=== PATIENT | male | born 1950 | race Caucasian/White ===

== ENCOUNTER → 2021-03-14 | Outpatient (CLI) | payer MEDICARE ==
--- NOTE | 2021-03-14 10:46 | KCIC ---
EXAM: Bilateral feet, 3 views. HISTORY: Pain. COMPARISON: None. FINDINGS: 3 views of both feet are obtained. There is no acute fracture, dislocation or subluxation. There is minimal enthesopathy at Achilles tendon insertions. IMPRESSION: No acute osseous finding. Electronically signed by: Lin Ware MD (03/14/2021 10:43 AM) [id number]
== END ==
LOC: KCIC 10:18
PROVIDERS: ATTEND Family Medicine
DX: M79.671 Pain in right foot (principal); M79.672 Pain in left foot
CPT/HCPCS: 73630-50

== ENCOUNTER 2021-05-05 10:08 | Observation (INO) | payer MEDICARE ==
[~2021-05-05] VITALS: Ht 175.3 cm; Wt 92.0 kg
[2021-05-05] MEDS ORDERED: IV NORMAL SALINE 1000ML BAG 1,000 ML IV ONE (10:30)
--- NOTE | 2021-05-05 10:35 | PHYS DOC ---
General Adult EDM: Chief Complaint: Palpitations HPI: HPI: Patient is a 70 year old male who presents with 2 days of intermittent palpitations and shortness of breath causing " panting" and just not feeling well. He states he is feeling better today. He is denying chest pain, dizziness, headache, nausea, vomiting, diarrhea, fever, back pain, syncope, lightheadedness, abdominal pain, vision change, numbness tingling, focal weak ness. He states he has no family history of heart disease or cardiac problems. He does still vape occasionally. He has a history of hypertension, anxiety, insomnia, former smoker, bowel resection. Review of Systems: Review of Systems: Constitutional: Denies fever or chills. [] Eyes: Denies change in visual acuity. [] HENT: Denies nasal congestion or sore throat. [] Respiratory: Denies cough or +shortness of breath. [] Cardiovascular: Denies chest pain or edema. + Palpitations [] GI: Denies abdominal pain, nausea, vomiting, bloody stools or diarrhea. [] : Denies dysuria. [] Musculoskeletal: Denies back pain or joint pain. [] Integument: Denies rash. [] Neurologic: Denies headache, focal weakness or sensory changes. [] Endocrine: Denies polyuria or polydipsia. [] Lymphatic: Denies swollen glands. [] Psychiatric: Denies depression or anxiety. [] Heart Score: C/O Chest Pain: No HEART Score for Chest Pain: HEART Score for Chest Pain Response (Comments) Value History Slighlty/Non-Suspicious 0 ECG Nonspecific Repolarizatio 1 Age > 65 2 Risk Factors 1 or 2 Risk Factors 1 Troponin < Normal Limit 0 Total 4 Risk Factors: Risk Factors: DM, Current or recent (<one month) smoker, HTN, HLP, family history of CAD, obesity. Risk Scores: Score 0 - 3: 2.5% MACE over next 6 weeks - Discharge Home Score 4 - 6: 20.3% MACE over next 6 weeks - Admit for Clinical Observation Score 7 - 10: 72.7% MACE over next 6 weeks - Early Invasive Strategies Physical Exam: PE: Constitutional: Well developed, well nourished, no acute distress, non-toxic appearance. [] HENT: Normocephalic, atraumatic, bilateral external ears normal, oropharynx moist, no oral exudates, nose normal. [] Eyes: PERRLA, EOMI, conjunctiva normal, no discharge. [] Neck: Normal range of motion, no tenderness, supple, no stridor. [] Cardiovascular:Heart rate sinus arrhythmia rhythm, no murmur [] Lungs & Thorax: Bilateral upper breath sounds clear lower diminished to auscultation [] Abdomen: Bowel sounds normal, soft, no tenderness, no masses, no pulsatile masses. [] Skin: Warm, dry, no erythema, no rash. [] Back: No tenderness, no CVA tenderness. [] Extremities: No tenderness, no cyanosis, no clubbing, ROM intact, no edema. [] Neurologic: Alert and oriented X 3, normal motor function, normal sensory function, no focal deficits noted. [] Psychologic: Affect normal, judgement normal, mood normal. [] EKG: EK and read by Dr. Wise is irregular sinus rhythm but no STEMI. [address] Wise as a irregular sinus arrhythmia but no STEMI Radiology/Procedures: Radiology/Procedures: [] Impression: [address] [id number] IMAGING REPORT Signed PATIENT: DANNIE DOE ACCOUNT: [id number] : 1950 LOCATION: ER AGE: 70 SEX: M EXAM STATUS: PRE ER ORD. PHYSICIAN: JOSIAH DAVENPORT APRN REASON: chest pain PROCEDURE: PORTABLE CHEST 1V XR CHEST 1V History: Chest pain Comparison: 11/22/2009 Technique: Portable AP radiograph of the chest. Findings: The lungs are adequately and symmetrically inflated. No airspace consolidation, pleural effusion or pneumothorax. The heart size and pulmonary vasculature are w ithin normal limits. Osseous structures and soft tissues are unremarkable. Impression: 1. No acute cardiopulmonary process. Electronically signed by: Gwyn Teresa MD (05/05/2021 10:38 AM) [id number] DICTATED and SIGNED BY: GWYN TERESA MD DATE: 05/05/21 [id number] [id number] IMAGING REPORT Signed PATIENT: DANNIE DOE ACCOUNT: [id number] : 1950 LOCATION: ER AGE: 70 SEX: M EXAM STATUS: REG ER ORD. PHYSICIAN: JOSIAH DAVENPORT APRN REASON: chest pain, papitations, soa PROCEDURE: CT ANGIOGRAPHY CHEST CT arteriogram of the chest. HISTORY: Chest pain, palpitations, short of air CT arteriogram of the chest was done using 100 mL Omnipaque 350 contrast. Sagittal and coronal MIP images were reconstructed. There is no mediastinal adenopathy. There is a trace of pleural effusion on the left. Upper aspect of the liver and spleen are unremarkable. Lungs are free of infiltrates. There are mild emphysematous changes. There are no other infiltrates. This study is negative for a pulmonary embolus. There are mild calcifications in the coronary arteries mainly in the LAD. IMPRESSION: 1. Mild atelectasis without other infiltrates. 2. Negative for a pulmonary embolus. 3. Trace of pleural effusion on the left. PQRS Compliance Statement: One or more of the following individualized dose reduction techniques were utilized for this examination: 1. Automated exposure control 2. Adjustment of the mA and/or kV according to patient size 3. Use of iterative reconstruction technique Electronically signed by: Colt Maloney MD (05/05/2021 11:24 AM) [facility] DICTATED and SIGNED BY: COLT MALONEY MD DATE: 05/05/21 [id number] Course & Med Decision Making: Course & Med Decision Making Pertinent Labs and Imaging studies reviewed. (See chart for details) See HPI. Alert and oriented x4. Ambulatory steady gait. Speaks in full clear sentences. Skin pink warm and dry. No peripheral edema. Lungs are clear in upper lobes and diminished in lower lobes. Patient states he will take Valium to help him sleep and occasionally Adderall to help him have energy to get things done. Patient is positive for benzo, amphetamine (patient states he takes Adderall), marijuana. Patient does drops down to 88-89% on room air. CT of the chest does show pleural effusion on the left and some emphysema changes. Patient's BNP is elevated. Patient is weary of being admitted here due to a bad experience years ago and his father also here. Patient does not have a history of CHF, COPD or emphysema. He does not have a history of any heart problems. His EKG is irregular sinus rhythm. Patient is agreeable to the admitted to the hospital. Patient admitted to Dr. Cook. [] José Disclaimer: José Disclaimer: This electronic medical record was generated, in whole or in part, using a voice recognition dictation system. Departure Departure Impression: Primary Impression: Shortness of breath Additional Impressions: Pleural effusion Palpitations Disposition: ADMITTED INPATIENT Admitting Physician: ROBBIE Condition: STABLE Referrals: VANNESSA PETIT (PCP) JOSIAH DAVENPORT APRN May 05, 2021 10:35
[2021-05-05 10:39] LABS: BASO # 0.1 x10^3/uL (0.0-0.2); BASO % 1 % (0-3); EOS # 0.1 x10^3/uL (0.0-0.7); EOS % 1 % (0-3); HEMATOCRIT 36.3 % (39.0-53.0); HEMOGLOBIN 11.5 g/dL (13.0-17.5); LYMPH # 1.4 x10^3/uL (1.0-4.8); LYMPH % 17 % (24-48); MEAN CORPUSCULAR HEMOGLOBIN 31 pg (25-35); MEAN CORPUSCULAR HGB CONC 32 g/dL (31-37); MEAN CORPUSCULAR VOLUME 98 fL (79-100); MONO # 0.7 x10^3/uL (0.0-1.1); MONO % 8 % (0-9); NEUT % 73 % (31-73); PLATELET COUNT 153 x10^3/uL (140-400); WHITE BLOOD COUNT 8.2 x10^3/uL (4.0-11.0)
--- NOTE | 2021-05-05 10:40 | RAD ---
XR CHEST 1V History: Chest pain Comparison: 11/22/2009 Technique: Portable AP radiograph of the chest. Findings: The lungs are adequately and symmetrically inflated. No airspace consolidation, pleural effusion or p neumothorax. The heart size and pulmonary vasculature are within normal limits. Osseous structures an d soft tissues are unremarkable. Impression: 1. No acute cardiopulmonary process. Electronically signed by: Gwyn Painting MD (05/05/2021 10:38 AM) [id number]
--- NOTE | 2021-05-05 10:41 | EKG ---
[facility] [address] [place] [address] Test Date: 2021-05-05 Test Time: 10:17:01 Pat Name: DANNIE DOE Department: Room: Gender: M Planer Stone: : 1950 Requested By: JOSIAH DAVENPORT Order Number: [id number] Reading MD: Anjum Grayson MD Measurements Intervals [place] Rate: 91 P: 28 [place]: 152 QRS: 125 QRSD: 148 T: -34 QT: 366 QTc: 452 Interpretive Statements SINUS ARRHYTHMIA RIGHT JACOBSON/VERTICAL AXIS IVCD Electronically Signed On 05-09-2021 11:14:31 EMPLOYMENT APPEALS EXAMINER by Anjum Grayson MD
[2021-05-05 10:49] LABS: CALCIUM 8.3 mg/dL (8.5-10.1); CREATININE 0.9 mg/dL (0.7-1.3); GFR 83.7; POTASSIUM 3.6 mmol/L (3.5-5.1); PROTHROMBIN TIME PATIENT 12.3 SEC (11.7-14.0)
[2021-05-05 10:55] LABS: ALBUMIN 3.5 g/dL (3.4-5.0); ALBUMIN/GLOBULIN RATIO 0.9 (1.0-1.7); MAGNESIUM 2.1 mg/dL (1.8-2.4); TOTAL BILIRUBIN 0.8 mg/dL (0.2-1.0); TOTAL PROTEIN 7.5 g/dL (6.4-8.2)
[2021-05-05] MEDS ORDERED: IOHEXOL 350 MG/ML 100 ML VIAL. IV ONE (11:00)
[2021-05-05] MEDS ORDERED: CONTRAST GIVEN. MC PRN (11:00)
[2021-05-05 11:14] LABS: BARBITURATES NEG (NEG); BENZODIAZEPINES POS (NEG); CANNABINOIDS POS (NEG); COCAINE NEG (NEG); METHADONE NEG (NEG); OPIATES NEG (NEG); PHENCYCLIDINE NEG (NEG)
[2021-05-05 11:16] LABS: AMPHETAMINE/METHAMPHETAMINE POS (NEG)
--- NOTE | 2021-05-05 11:27 | RAD ---
CT arteriogram of the chest. HISTORY: Chest pain, palpitations, short of air CT arteriogram of the chest was done using 100 mL Omnipaque 350 contrast. Sagittal and coronal MIP im ages were reconstructed. There is no mediastinal adenopathy. There is a trace of pleural effusion on the left. Upper aspect of the liver and spleen are unremarkable. Lungs are free of infiltrates. There are mild emphysematous changes. There are no other infiltrates. This study is negative for a pulmona ry embolus. There are mild calcifications in the coronary arteries mainly in the LAD. IMPRESSION: 1. Mild atelectasis without other infiltrates. 2. Negative for a pulmonary embolus. 3. Trace of pleural effusion on the left. PQRS Compliance Statement: One or more of the following individualized dose reduction techniques were utilized for this examinat ion: 1. Automated exposure control 2. Adjustment of the mA and/or kV according to patient size 3. Use of iterative reconstruction technique Electronically signed by: Colt Maloney MD (05/05/2021 11:24 AM) [facility]
[2021-05-05 11:34] LABS: BILIRUBIN,URINE NEGATIVE (NEG); CLARITY,URINE HAZY; COLOR,URINE YELLOW; NITRITE,URINE NEGATIVE (NEG); PH,URINE 5.5 (<5.0-8.0); PROTEIN,URINE 30 mg/dL (NEG-TRACE)
[2021-05-05 11:36] LABS: BACTERIA,URINE 0 /HPF (0-FEW); RBC,URINE 0 /HPF (0-2); WBC,URINE 0 /HPF (0-4)
--- NOTE | 2021-05-05 11:48 | EKG ---
[facility] [address] [place] [address] Test Date: 2021-05-05 Test Time: 11:00:00 Pat Name: DANNIE DOE Department: Room: Gender: M Business Systems Lead: : 1950 Requested By: JOSIAH DAVENPORT Order Number: [id number] Reading MD: Anjum Grayson MD Measurements Intervals [place] Rate: 89 P: -13 [place]: 132 QRS: -49 QRSD: 148 T: 97 QT: 378 QTc: 461 Interpretive Statements SINUS ARRHYTHMIA PACS LAFB LVH Electronically Signed On 05-09-2021 11:14:10 SALES STOCK ASSOCIATE by Anjum Grayson MD
[2021-05-05] MEDS ORDERED: ACETAMINOPHEN 325 MG TABLET. PO PRN (12:30)
[2021-05-05] MEDS ORDERED: guaiFENesin DM 200MG/20MG 10 ML SYRUP PO PRN (12:30)
[2021-05-05] MEDS ORDERED: ONDANSETRON PF 4 MG/2 ML VIAL. IVP PRN (12:30)
[2021-05-05] MEDS ORDERED: ALBUTEROL SULFATE 2.5 MG/3 ML NEBU. NEB PRN (12:30)
--- NOTE | 2021-05-05 12:49 | PDOC1 ---
History and Physical Date of Admission Date of Admission DATE: 05/05/21 TIME: 12:36 Identification/Chief Complaint Chief Complaint Shortness of breath Source Source: Patient History of Present Illness History of Present Illness Mr Bronson is a 70 yo male w/ PMHx GERD, adult ADHD, BPH, insomnia who presents with several days of intermittent palpitations and shortness of breath and general malaise. He notes he developed a dry cough on 04/30 and it progressed worse when he lays down and worse with exertion feels like it was associated with some foamy sputum on 05/02, 05/03/2021 overnight he felt hot and diaphoretic. Did not take his temperature. He still did have the cough and some chest discomfort with associated palpitations. He thinks they are improving but he had a scheduled visit with his PCP this morning 05/05/2021 and had EKG which was abnormal with new left anterior f ascicular block noted he was sent to the ED for further evaluation. No dizziness, headache, nausea, vomiting, diarrhea, fever, back pain, syncope, lightheadedness, abdominal pain, vision change, numbness tingling, focal weakness. He does still vape occasionally and drinks up to 6 drinks a day. He has a history of hypertension, anxiety, insomnia, former smoker, bowel resection due to perforated diverticulis. No family history of heart disease or cardiac problems. He notes he had a negative stress treadmill test in 2011. He notes he was started on Adderall for concerns for daytime sleepiness. He thinks he has been on it for at least 4 years. He has not had a sleep study and notes that he would not be interested in doing this. WBC 8.2, Hb 11.5, platelets 153, INR 0.9, NA 146, K3.6, BUN 16, CR 0.9, glucose 109, calcium 8.3, magnesium 2.1, bilirubin 0.8, AST 10, ALT 17, alkaline phospha tase 56, high-sensitivity troponin is 31, NT proBNP 2868, lipase 42, urinalysis bland concentrated, urine drug screen positive for amphetamines benzodiazepines and cannabinoids. Patient has active prescriptions for alprazolam 2 mg #120 monthly and Adderall 30 mg #60 monthly. EKG sinus rate of 89 bpm QRS 148 appears left anterior fascicular block. No ST elevations or significant depressions. Lateral precordial T wave flattening T WI in aVL and lead I. Chest radiograph no acute abnormalities CTA was performed in the ED negative for pulmonary embolus showing mild emphysematous changes and left basilar atelectasis. Past Medical History GI: GERD Renal/: Benign prostatic enlarg. Past Surgical History Past Surgical History: Colectomy Family History Family History: Cancer (Colon and prostate) Social History Smoke: 1 pack per day ALCOHOL: heavy Drugs: Marijuana Current Problem List Problem List Problems Medical Problems: (1) Palpitations Status: Acute (2) Pleural effusion Status: Acute (3) Shortness of breath Status: Acute Current Medications Current Medications Current Medications Sodium Chloride 1,000 ml @ 1,000 mls/hr 1X ONCE IV Last administered on 05/05/21at 10:34; Start 05/05/21 at 10:30; Stop 05/05/21 at 11:29; Status DC Iohexol (Omnipaque 350 Mg/ml) 100 ml 1X ONCE IV Last administered on 05/05/21at 11:02; Start 05/05/21 at 11:00; Stop 05/05/21 at 11:01; Status DC Info (CONTRAST GIVEN -- Rx MONITORING) 1 each PRN DAILY PRN MC SEE COMMENTS; Start 05/05/21 at 11:00; Stop 05/07/21 at 10:59 Allergies Allergies: Coded Allergies: No Known Drug Allergies (Unverified , 05/05/21) ROS General: YES: Fatigue, Malaise; No: Chills, Night Sweats, Appetite, Other PSYCHOLOGICAL ROS: No: Anxiety, Behavioral Disorder, Concentration difficultie, Decreased libido, Depression, Disorientation, Hallucinations, Hostility, Irritablity, Memory difficulties, Mood Swings, Obsessive thoughts, Physical abuse, Sexual abuse, Sleep disturbances, Suicidal ideation, Other Eyes: No Blurry vision, No Decreased vision, No Double vision, No Dry eyes, No Excessive tearing, No Eye Pain, No Itchy Eyes, No Loss of vision, No Photophobia, No Scotomata, No Uses contacts, No Uses glasses, No Other HEENT: No: Heacaches, Visual Changes, Hearing change, Nasal congestion, Nasal discharge, Oral lesions, Sinus pain, Sore Throat, Epistaxis, Sneezing, Snoring, Tinnitus, Vertigo, Vocal changes, Other ALLERGY AND IMMUNOLOGY: No: Hives, Insect Bite Sensitivity, Itchy/Watery Eyes, Nasal Congestion, Post Nasal Drip, Seasonal Allergies, Other Hematological and Lymphatic: No: Bleeding Problems, Blood Clots, Blood Transfusions, Brusing, Night Sweats, Pallor, Swollen Lymph Nodes, Other ENDOCRINE: No: Breast Changes, Galactorrhea, Hair Pattern Changes, Hot Flashes, Malaise/lethargy, Mood Swings, Palpitations, Polydipsia/polyuria, Skin Changes, Temperature Intolerance, Unexpected Weight Changes, Other Breast: No New/Changing Breast Lumps, No Nipple changes, No Nipple discharge, No Other Respiratory: YES: Cough, Shortness of breath, SOB with excertion; No: Hemoptysis, Orthopnea, Pleuritic Pain, Sputum Changes, Stridor, Tachypnea, Wheezing, Other Cardiovascular: yes Palpitations, yes Orthopnea; No Chest Pain, No Paroxysmal Noc. Dyspnea, No Edema, No Lt Headedness, No Other Gastrointestinal: No Nausea, No Vomiting, No Abdominal Pain, No Diarrhea, No Constipation, No Melena, No Hematochezia, No Other Genitourinary: No Dysuria, No Frequency, No Incontinence, No Hematuria, No Retention, No Discharge, No Urgency, No Pain, No Flank Pain, No Other, No , No , No , No , No , No , No Musculoskeletal: No Gait Disturbance, No Joint Pain, No Joint Stiffness, No Joint Swelling, No Muscle Pain, No Muscular Weakness, No Pain In:, No Swelling In:, No Other Neurological: No Behavorial Changes, No Bowel/Bladder ControlChng, No Confusion, No Dizziness, No Gait Disturbance, No Headaches, No Impaired Coord/balance, No Memory Loss, No Numbness/Tingling, No Seizures, No Speech Problems, No Tremors, No Visual Changes, No Weakness, No Other Skin: No Dry Skin, No Eczema, No Hair Changes, No Lumps, No Mole Changes, No Mottling, No Nail Changes, No Pruritus, No Rash, No Skin Lesion Changes, No Other, No Acne Physical Exam General: Alert, Oriented X3, Cooperative, No acute distress HEENT: Atraumatic, PERRLA, EOMI, Mucous membr. moist/pink Lungs: Other (Increased expiratory phase and left basilar crackles.) Heart: S1S2, RRR, no thrills, no rubs, no gallops, no murmurs Abdomen: Normal bowel sounds, Soft, No tenderness, No hepatosplenomegaly, No masses Rectal Exam: not examined Extremities: No clubbing, No cyanosis, No edema, Normal pulses, No tenderness/swelling Skin: No rashes, No breakdown, No significant lesion Neuro: Normal gait, Normal speech, Strength at 5/5 X4 ext, Normal tone, Sensation intact, Cranial nerves 3-12 NL, Reflexes 2+ Psych/Mental Status: Mental status NL, Mood NL Vitals Vitals Vital Signs Date Time Temp Pulse Resp B/P (MAP) Pulse Ox O2 Delivery O2 Flow Rate FiO2 05/05/21 11:35 86 18 151/82 (105) 94 Room Air 05/05/21 10:10 98.6 98.6 Labs Labs Laboratory Tests Test 05/05/21 10:21 05/05/21 10:46 White Blood Count 8.2 x10^3/uL (4.0-11.0) Red Blood Count 3.70 x10^6/uL (4.30-5.70) Hemoglobin 11.5 g/dL (13.0-17.5) Hematocrit 36.3 % (39.0-53.0) Mean Corpuscular Volume 98 fL (79-100) Mean Corpuscular Hemoglobin 31 pg (25-35) Mean Corpuscular Hemoglobin Concent 32 g/dL (31-37) Red Cell Distribution Width 16.0 % (11.5-14.5) Platelet Count 153 x10^3/uL (140-400) Neutrophils (%) (Auto) 73 % (31-73) Lymphocytes (%) (Auto) 17 % (24-48) Monocytes (%) (Auto) 8 % (0-9) Eosinophils (%) (Auto) 1 % (0-3) Basophils (%) (Auto) 1 % (0-3) Neutrophils # (Auto) 6.0 x10^3/uL (1.8-7.7) Lymphocytes # (Auto) 1.4 x10^3/uL (1.0-4.8) Monocytes # (Auto) 0.7 x10^3/uL (0.0-1.1) Eosinophils # (Auto) 0.1 x10^3/uL (0.0-0.7) Basophils # (Auto) 0.1 x10^3/uL (0.0-0.2) Prothrombin Time 12.3 SEC (11.7-14.0) Prothromb Time International Ratio 0.9 (0.8-1.1) Sodium Level 146 mmol/L (136-145) Potassium Level 3.6 mmol/L (3.5-5.1) Chloride Level 106 mmol/L (98-107) Carbon Dioxide Level 31 mmol/L (21-32) Anion Gap 9 (6-14) Blood Urea Nitrogen 16 mg/dL (8-26) Creatinine 0.9 mg/dL (0.7-1.3) Estimated GFR (Cockcroft-Gault) 83.7 BUN/Creatinine Ratio 18 (6-20) Glucose Level 109 mg/dL (70-99) Calcium Level 8.3 mg/dL (8.5-10.1) Magnesium Level 2.1 mg/dL (1.8-2.4) Total Bilirubin 0.8 mg/dL (0.2-1.0) Aspartate Amino Transf (AST/SGOT) 10 U/L (15-37) Alanine Aminotransferase (ALT/SGPT) 17 U/L (16-63) Alkaline Phosphatase 56 U/L (46-116) Troponin I High Sensitivity 31 ng/L (4-75) MX-[id number]-N-Type Natriuretic Peptide 2868 pg/mL (0-124) Total Protein 7.5 g/dL (6.4-8.2) Albumin 3.5 g/dL (3.4-5.0) Albumin/Globulin Ratio 0.9 (1.0-1.7) Lipase 42 U/L (73-393) Urine Collection Type Unknown Urine Color Yellow Urine Clarity Hazy Urine pH 5.5 (<5.0-8.0) Urine Specific Mallory >=1.030 (1.000-1.030) Urine Protein 30 mg/dL (NEG-TRACE) Urine Glucose (UA) Negative mg/dL (NEG) Urine Ketones (Stick) Negative mg/dL (NEG) Urine Blood Negative (NEG) Urine Nitrite Negative (NEG) Urine Bilirubin Negative (NEG) Urine Urobilinogen Dipstick 1.0 mg/dL (0.2 mg/dL) Urine Leukocyte Esterase Negative (NEG) Urine RBC 0 /HPF (0-2) Urine WBC 0 /HPF (0-4) Urine Squamous Epithelial Cells Few /LPF Urine Bacteria 0 /HPF (0-FEW) Urine Mucus Mod /LPF Urine Opiates Screen Neg (NEG) Urine Methadone Screen Neg (NEG) Urine Barbiturates Neg (NEG) Urine Phencyclidine Screen Neg (NEG) Urine Amphetamine/Methamphetamine Pos (NEG) Urine Benzodiazepines Screen Pos (NEG) Urine Cocaine Screen Neg (NEG) Urine Cannabinoids Screen Pos (NEG) Urine Ethyl Alcohol Neg (NEG) Laboratory Tests Test 05/05/21 10:21 05/05/21 10:46 White Blood Count 8.2 x10^3/uL (4.0-11.0) Red Blood Count 3.70 x10^6/uL (4.30-5.70) Hemoglobin 11.5 g/dL (13.0-17.5) Hematocrit 36.3 % (39.0-53.0) Mean Corpuscular Volume 98 fL (79-100) Mean Corpuscular Hemoglobin 31 pg (25-35) Mean Corpuscular Hemoglobin Concent 32 g/dL (31-37) Red Cell Distribution Width 16.0 % (11.5-14.5) Platelet Count 153 x10^3/uL (140-400) Neutrophils (%) (Auto) 73 % (31-73) Lymphocytes (%) (Auto) 17 % (24-48) Monocytes (%) (Auto) 8 % (0-9) Eosinophils (%) (Auto) 1 % (0-3) Basophils (%) (Auto) 1 % (0-3) Neutrophils # (Auto) 6.0 x10^3/uL (1.8-7.7) Lymphocytes # (Auto) 1.4 x10^3/uL (1.0-4.8) Monocytes # (Auto) 0.7 x10^3/uL (0.0-1.1) Eosinophils # (Auto) 0.1 x10^3/uL (0.0-0.7) Basophils # (Auto) 0.1 x10^3/uL (0.0-0.2) Prothrombin Time 12.3 SEC (11.7-14.0) Prothromb Time International Ratio 0.9 (0.8-1.1) Sodium Level 146 mmol/L (136-145) Potassium Level 3.6 mmol/L (3.5-5.1) Chloride Level 106 mmol/L (98-107) Carbon Dioxide Level 31 mmol/L (21-32) Anion Gap 9 (6-14) Blood Urea Nitrogen 16 mg/dL (8-26) Creatinine 0.9 mg/dL (0.7-1.3) Estimated GFR (Cockcroft-Gault) 83.7 BUN/Creatinine Ratio 18 (6-20) Glucose Level 109 mg/dL (70-99) Calcium Level 8.3 mg/dL (8.5-10.1) Magnesium Level 2.1 mg/dL (1.8-2.4) Total Bilirubin 0.8 mg/dL (0.2-1.0) Aspartate Amino Transf (AST/SGOT) 10 U/L (15-37) Alanine Aminotransferase (ALT/SGPT) 17 U/L (16-63) Alkaline Phosphatase 56 U/L (46-116) Troponin I High Sensitivity 31 ng/L (4-75) GN-Bmr-V-Type Natriuretic Peptide 2868 pg/mL (0-124) Total Protein 7.5 g/dL (6.4-8.2) Albumin 3.5 g/dL (3.4-5.0) Albumin/Globulin Ratio 0.9 (1.0-1.7) Lipase 42 U/L (73-393) Urine Collection Type Unknown Urine Color Yellow Urine Clarity Hazy Urine pH 5.5 (<5.0-8.0) Urine Specific Mallory >=1.030 (1.000-1.030) Urine Protein 30 mg/dL (NEG-TRACE) Urine Glucose (UA) Negative mg/dL (NEG) Urine Ketones (Stick) Negative mg/dL (NEG) Urine Blood Negative (NEG) Urine Nitrite Negative (NEG) Urine Bilirubin Negative (NEG) Urine Urobilinogen Dipstick 1.0 mg/dL (0.2 mg/dL) Urine Leukocyte Esterase Negative (NEG) Urine RBC 0 /HPF (0-2) Urine WBC 0 /HPF (0-4) Urine Squamous Epithelial Cells Few /LPF Urine Bacteria 0 /HPF (0-FEW) Urine Mucus Mod /LPF Urine Opiates Screen Neg (NEG) Urine Methadone Screen Neg (NEG) Urine Barbiturates Neg (NEG) Urine Phencyclidine Screen Neg (NEG) Urine Amphetamine/Methamphetamine Pos (NEG) Urine Benzodiazepines Screen Pos (NEG) Urine Cocaine Screen Neg (NEG) Urine Cannabinoids Screen Pos (NEG) Urine Ethyl Alcohol Neg (NEG) Images Images Chest radiograph: The lungs are adequately and symmetrically inflated. No airspace consolidation, pleural effusion or pneumothorax. The heart size and pulmonary vasculature are within normal limits. Osseous structures and soft tissues are unremarkable. Impression: 1. No acute cardiopulmonary process. CTPA: CT arteriogram of the chest was done using 100 mL Omnipaque 350 contrast. Sagittal and coronal MIP images were reconstructed. There is no mediastinal adenopathy. There is a trace of pleural effusion on the left. Upper aspect of the liver and spleen are unremarkable. Lungs are free of infiltrates. There are mild emphysematous changes. There are no other infiltrates. This study is negative for a pulmonary embolus. There are mild calcifications in the coronary arteries mainly in the LAD. IMPRESSION: 1. Mild atelectasis without other infiltrates. 2. Negative for a pulmonary embolus. 3. Trace of pleural effusion on the left. VTE Prophylaxis Ordered VTE Prophylaxis Devices: No VTE Pharmacological Prophylaxi: Yes Assessment/Plan Assessment/Plan Shortness of breath - atypical pneumonia/bronchitis vs more likely mild acute diastolic CHF. 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 possibly missed [place]. Cardiology consulted. Echo ordered Adult ADHD - on adderall Insomnia - on xanax GERD - cont PPI Daytime sleepiness -recommend sleep study or alternative medications such as modafinil or armodafinil. FEN - Cardiac diet PPX - PPI, lovenox CODE - DNR/DNI Dispo - observation for chest pain Justifications for Admission Other Justification BALJINDER GREENFIELD MD May 05, 2021 12:48
[2021-05-05 13:39] VITALS: BP 129/83
--- NOTE | 2021-05-05 13:49 | PDOC2 ---
MIMI PINEDA RELIEF MANAGER 05/05/21 1349: CARDIAC CONSULT DATE OF CONSULT Date of Consult DATE: 05/05/21 TIME: 13:36 REASON FOR CONSULT Reason for Consult: Palpitations REFERRING PHYSICIAN Referring Physician: Elizabeth SOURCE Source: Chart review, Patient HISTORY OF PRESENT ILLNESS HISTORY OF PRESENT ILLNESS This is a pleasant 70 yo male admitted for complains of panting. He went to see his PCP and told him jakob come to ED. In the last 2 days he has been having this panting episode like he was SOA. Denies palpitations for me. No chest pain. No dizziness. No viral symptoms. He has had covid-19 in the past and he is vaccinated. No hx of CAD, arrhythmias, nor VTE. No peripheral edema. He takes adderall for energuy boost and denies ADHD. He also vapes. He takes xanax for sleep. PAST MEDICAL HISTORY Cardiovascular: HTN Pulmonary: No pertinent hx CENTRAL NERVOUS SYSTEM: Other (No pertinent history) GI: GERD Heme/Onc: No pertinent hx Psych: Other (insomnia) Musculoskeletal: Osteoarthritis Rheumatologic: No pertinent hx Infectious disease: No pertinent hx ENT: No pertinent hx Renal/: No pertinent hx Endocrine: No pertinent hx PAST SURGICAL HISTORY Past Surgical History: Other (bowel surgery) FAMILY HISTORY Family History noncontributory SOCIAL HISTORY Smoke: Quit ALCOHOL: none Drugs: Marijuana Lives: with Family CURRENT MEDICATIONS CURRENT MEDICATIONS Current Medications Medications (Trade) Dose Ordered Sig/Kala Route PRN Reason Start Time Stop Time Status Last Admin Dose Admin Sodium Chloride 1,000 ml @ 1,000 mls/hr 1X ONCE IV 05/05/21 10:30 05/05/21 11:29 DC 05/05/21 10:34 Iohexol (Omnipaque 350 Mg/ml) 100 ml 1X ONCE IV 05/05/21 11:00 05/05/21 11:01 DC 05/05/21 11:02 ALLERGIES ALLERGIES: Coded Allergies: No Known Drug Allergies (Unverified , 05/05/21) ROS Review of System 14 point ROS evaluated with pertinent positives noted per HPI PHYSICAL EXAM General: Alert, Oriented X3, Cooperative, No acute distress HEENT: Atraumatic, Mucous membr. moist/pink Lungs: Other (faint crackles to bases) Abdomen: Soft, No tenderness Extremities: No cyanosis, No edema Skin: No breakdown, No significant lesion Neuro: Normal speech, Sensation intact Psych/Mental Status: Mental status NL, Mood NL MUSCULOSKELETAL: Osteoarthritic changes both hands VITALS/I&O VITALS/I&O: Vital Signs Date Time Temp Pulse Resp B/P (MAP) Pulse Ox O2 Delivery O2 Flow Rate FiO2 05/05/21 12:35 91 21 176/81 (112) 96 Room Air 05/05/21 10:10 98.6 98.6 LABS Lab: Laboratory Tests Test 05/05/21 10:21 05/05/21 10:46 White Blood Count 8.2 x10^3/uL (4.0-11.0) Red Blood Count 3.70 x10^6/uL (4.30-5.70) L Hemoglobin 11.5 g/dL (13.0-17.5) L Hematocrit 36.3 % (39.0-53.0) L Mean Corpuscular Volume 98 fL (79-100) Mean Corpuscular Hemoglobin 31 pg (25-35) Mean Corpuscular Hemoglobin Concent 32 g/dL (31-37) Red Cell Distribution Width 16.0 % (11.5-14.5) H Platelet Count 153 x10^3/uL (140-400) Neutrophils (%) (Auto) 73 % (31-73) Lymphocytes (%) (Auto) 17 % (24-48) L Monocytes (%) (Auto) 8 % (0-9) Eosinophils (%) (Auto) 1 % (0-3) Basophils (%) (Auto) 1 % (0-3) Neutrophils # (Auto) 6.0 x10^3/uL (1.8-7.7) Lymphocytes # (Auto) 1.4 x10^3/uL (1.0-4.8) Monocytes # (Auto) 0.7 x10^3/uL (0.0-1.1) Eosinophils # (Auto) 0.1 x10^3/uL (0.0-0.7) Basophils # (Auto) 0.1 x10^3/uL (0.0-0.2) Prothrombin Time 12.3 SEC (11.7-14.0) Prothrombin Time INR 0.9 (0.8-1.1) Sodium Level 146 mmol/L (136-145) H Potassium Level 3.6 mmol/L (3.5-5.1) Chloride Level 106 mmol/L (98-107) Carbon Dioxide Level 31 mmol/L (21-32) Anion Gap 9 (6-14) Blood Urea Nitrogen 16 mg/dL (8-26) Creatinine 0.9 mg/dL (0.7-1.3) Estimated GFR (Cockcroft-Gault) 83.7 BUN/Creatinine Ratio 18 (6-20) Glucose Level 109 mg/dL (70-99) H Calcium Level 8.3 mg/dL (8.5-10.1) L Magnesium Level 2.1 mg/dL (1.8-2.4) Total Bilirubin 0.8 mg/dL (0.2-1.0) Aspartate Amino Transferase (AST) 10 U/L (15-37) L Alanine Aminotransferase (ALT) 17 U/L (16-63) Alkaline Phosphatase 56 U/L (46-116) Troponin I High Sensitivity 31 ng/L (4-75) LG-Trn-R-Type Natriuretic Peptide 2868 pg/mL (0-124) H Total Protein 7.5 g/dL (6.4-8.2) Albumin 3.5 g/dL (3.4-5.0) Albumin/Globulin Ratio 0.9 (1.0-1.7) L Lipase 42 U/L (73-393) L Urine Collection Type Unknown Urine Color Yellow Urine Clarity Hazy Urine pH 5.5 (<5.0-8.0) Urine Specific [place] >=1.030 (1.000-1.030) Urine Protein 30 mg/dL (NEG-TRACE) Urine Glucose (UA) Negative mg/dL (NEG) Urine Ketones (Stick) Negative mg/dL (NEG) Urine Blood Negative (NEG) Urine Nitrite Negative (NEG) Urine Bilirubin Negative (NEG) Urine Urobilinogen Dipstick 1.0 mg/dL (0.2 mg/dL) Urine Leukocyte Esterase Negative (NEG) Urine RBC 0 /HPF (0-2) Urine WBC 0 /HPF (0-4) Urine Squamous Epithelial Cells Few /LPF Urine Bacteria 0 /HPF (0-FEW) Urine Mucus Mod /LPF Urine Opiates Screen Neg (NEG) Urine Methadone Screen Neg (NEG) Urine Barbiturates Neg (NEG) Urine Phencyclidine Screen Neg (NEG) Urine Amphetamine/Methamphetamine Pos (NEG) Urine Benzodiazepines Screen Pos (NEG) Urine Cocaine Screen Neg (NEG) Urine Cannabinoids Screen Pos (NEG) Urine Ethyl Alcohol Neg (NEG) Laboratory Tests 05/05/21 10:21 Laboratory Tests 05/05/21 10:21 ASSESSMENT/PLAN ASSESSMENT/PLAN 1. Mild CHF with possible combined/diastolic dysfunction 2. Possible COPD with continued vaping 3. LBBB: no prior EKG for comparison. Denies any palpitation for me 4. Adderall use: no clear indiction 5. Marijuana use 6. Anxiety Recommendations 1. Trend troponin. TTE. FLP and TSH 2. Lasix PRN 3. Possible ischemic w/u as an outpt 4. Would not recommend continuation of adderall DEBORA MINA MD 05/05/21 1702: CARDIAC CONSULT ASSESSMENT/PLAN ASSESSMENT/PLAN Patient seen and examined. Agree with LINEN SORTER's assessment and plan. Agree with diuresis for mild acute on chronic diastolic heart failure. EKG with LBBB. Troponin levels negative. Check 2D echo to assess LV systolic function. Plan ischemic evaluation as an outpatient. Thank you for consultation. MIMI PINEDA APRN May 05, 2021 13:49 DEBORA MINA MD May 05, 2021 17:02
[2021-05-05] MEDS ORDERED: ENOXAPARIN 40 MG/0.4 ML SYRINGE. SQ SCH (14:00)
[2021-05-05 15:00] VITALS: BP 147/97
[2021-05-05] MEDS: IPRATRPIUM/ALBUTEROL 0.5/2.5MG 3 ML NEBU. NEB SCH ×2 (15:14→19:33)
[2021-05-05] MEDS ORDERED: FUROSEMIDE 40 MG/4 ML VIAL. IVP ONE (16:30)
[2021-05-05] MEDS ORDERED: POTASSIUM CHLORIDE 20 MEQ TABLET.ER. PO ONE (16:30)
[2021-05-05] MEDS ORDERED: ALPRAZolam 1 MG TABLET PO PRN (16:45)
[2021-05-05] MEDS ORDERED: SILD20TA4 PO (17:06)
[2021-05-05] MEDS ORDERED: DEXT30TA2 PO (17:06)
[2021-05-05] MEDS ORDERED: MELO15TA23 PO (17:06)
[2021-05-05] MEDS ORDERED: PANT40TA77 PO (17:06)
[2021-05-05] MEDS ORDERED: ALPR2TAB5 PO (17:06)
[2021-05-05] MEDS ORDERED: CLON0.2T PO (17:06)
[2021-05-05] MEDS ORDERED: TAMS0.4C97 PO (17:06)
[2021-05-05] MEDS: FINASTERIDE 5 MG TABLET. PO SCH (17:14)
[2021-05-05] MEDS: PANTOPRAZOLE 40 MG TABLET.DR. PO SCH (17:15)
[2021-05-05 19:00] VITALS: BP 128/90
[2021-05-05] MEDS: BUDESONIDE 0.5 MG/2 ML NEBU. NEB SCH (19:33)
[2021-05-05] MEDS ORDERED: TAMSULOSIN 0.4 MG CAP.ER.24H. PO SCH (21:00)
[2021-05-05] MEDS ORDERED: SILDENAFIL CITRATE 20 MG TABLET. PO SCH (21:00)
[2021-05-05] MEDS ORDERED: AMPHETAMINE PO SCH (21:00)
[2021-05-05] MEDS ORDERED: DEXTROAMPHETAMINE PO SCH (21:00)
[2021-05-05 23:00] VITALS: BP 128/84
[2021-05-06 03:00] VITALS: BP 139/80
[2021-05-06] MEDS: PANTOPRAZOLE 40 MG TABLET.DR. PO SCH (05:46)
[2021-05-06 07:00] VITALS: BP 139/100
[2021-05-06] MEDS: BUDESONIDE 0.5 MG/2 ML NEBU. NEB SCH (07:51)
[2021-05-06] MEDS: IPRATRPIUM/ALBUTEROL 0.5/2.5MG 3 ML NEBU. NEB SCH ×2 (07:51→11:38)
[2021-05-06 07:55] LABS: CHOLESTEROL/HDL RATIO 2.5
--- NOTE | 2021-05-06 09:05 | PDOC ---
[facility] PROGRESS NOTE Date of Service DOS: DATE: 05/06/21 TIME: 09:04 Chief Complaint Chief Complaint Shortness of breath - atypical pneumonia/bronchitis vs more likely mild acute diastolic CHF. Will treat with IV furosemide Acute diastolic CHF - Lasix x1 IV and toprol xl and losartan Abnormal EKG - LAFB. his PCP notes this and our EKG confirms. possibly missed DC. Cardiology consulted. Echo completed Adult ADHD - on adderall Insomnia - on xanax GERD - cont PPI Daytime sleepiness -recommend sleep study or alternative medications such as modafinil or armodafinil. History of Present Illness History of Present Illness Mr Bronson is a 70 yo male w/ PMHx GERD, adult ADHD, BPH, insomnia who presents with several days of intermittent palpitations and shortness of breath and gener al malaise. He notes he developed a dry cough on 04/30 and it progressed worse when he lays down and worse with exertion feels like it was associated with some foamy sputum on 05/02, 05/03/2021 overnight he felt hot and diaphoretic. Did not take his temperature. He still did have the cough and some chest discomfort with associated palpitations. He thinks they are improving but he had a scheduled visit with his PCP this morning 05/05/2021 and had EKG which was abnormal with new left anterior fascicular block noted he was sent to the ED for further evaluation. No dizziness, headache, nausea, vomiting, diarrhea, fever, back pain, syncope, lightheadedness, abdominal pain, vision change, numbness tingling, focal weakness. He does still vape occasionally and drinks up to 6 drinks a day. He has a history of hypertension, anxiety, insomnia, former smoker, bowel resection due to perforated diverticulis. No family history of heart disease or cardiac problems. He notes he had a negative stress treadmill test in 2011. He notes he was started on Adderall for concerns for daytime sleepiness. He thinks he has been on it for at least 4 years. He has not had a sleep study and notes that he would not be interested in doing this. WBC 8.2, Hb 11.5, platelets 153, INR 0.9, NA 146, K3.6, BUN 16, CR 0.9, glucose 109, calcium 8.3, magnesium 2.1, bilirubin 0.8, AST 10, ALT 17, alkaline phosphatase 56, high-sensitivity troponin is 31, NT proBNP 2868, lipase 42, urinalysis bland concentrated, urine drug screen positive for amphetamines toney zodiazepines and cannabinoids. Patient has active prescriptions for alprazolam 2 mg #120 monthly and Adderall 30 mg #60 monthly. EKG sinus rate of 89 bpm QRS 148 appears left anterior fascicular block. No ST elevations or significant depressions. Lateral precordial T wave flattening T WI in aVL and lead I. Chest radiograph no acute abnormalities CTA was performed in the ED negative for pulmonary embolus showing mild emphysematous changes and left basilar atelectasis. 05/06: Several runs of short nonsustained V. tach overnight. Diuresed overnight with lasix, feeling improved. K replaced. Echo read pending, started on toprol xl and losartan, needs outpatient stress testing. Vitals/I&O Vitals/I&O: Vital Signs Date Time Temp Pulse Resp B/P (MAP) Pulse Ox O2 Delivery O2 Flow Rate FiO2 05/06/21 07:54 94 Room Air 05/06/21 07:00 98.3 84 18 139/100 (113) 98.3 I & O 05/05/21 05/05/21 05/06/21 15:00 23:00 07:00 Intake Total 1000 ml 590 ml Output Total 1700 ml 575 ml Balance 1000 ml -1110 ml -575 ml Physical Exam General: Alert, Oriented X3, Cooperative, No acute distress Abdomen: Normal bowel sounds, Soft, No tenderness, No hepatosplenomegaly, No masses Extremities: No clubbing, No cyanosis, No edema, Normal pulses, No tenderness/swelling Skin: No rashes, No breakdown, No significant lesion Labs Labs: Laboratory Tests Test 05/05/21 10:21 05/05/21 10:46 05/05/21 13:28 05/05/21 16:50 White Blood Count 8.2 x10^3/uL (4.0-11.0) Red Blood Count 3.70 x10^6/uL (4.30-5.70) Hemoglobin 11.5 g/dL (13.0-17.5) Hematocrit 36.3 % (39.0-53.0) Mean Corpuscular Volume 98 fL (79-100) Mean Corpuscular Hemoglobin 31 pg (25-35) Mean Corpuscular Hemoglobin Concent 32 g/dL (31-37) Red Cell Distribution Width 16.0 % (11.5-14.5) Platelet Count 153 x10^3/uL (140-400) Neutrophils (%) (Auto) 73 % (31-73) Lymphocytes (%) (Auto) 17 % (24-48) Monocytes (%) (Auto) 8 % (0-9) Eosinophils (%) (Auto) 1 % (0-3) Basophils (%) (Auto) 1 % (0-3) Neutrophils # (Auto) 6.0 x10^3/uL (1.8-7.7) Lymphocytes # (Auto) 1.4 x10^3/uL (1.0-4.8) Monocytes # (Auto) 0.7 x10^3/uL (0.0-1.1) Eosinophils # (Auto) 0.1 x10^3/uL (0.0-0.7) Basophils # (Auto) 0.1 x10^3/uL (0.0-0.2) Prothrombin Time 12.3 SEC (11.7-14.0) Prothromb Time International Ratio 0.9 (0.8-1.1) Sodium Level 146 mmol/L (136-145) Potassium Level 3.6 mmol/L (3.5-5.1) Chloride Level 106 mmol/L (98-107) Carbon Dioxide Level 31 mmol/L (21-32) Anion Gap 9 (6-14) Blood Urea Nitrogen 16 mg/dL (8-26) Creatinine 0.9 mg/dL (0.7-1.3) Estimated GFR (Cockcroft-Gault) 83.7 BUN/Creatinine Ratio 18 (6-20) Glucose Level 109 mg/dL (70-99) Calcium Level 8.3 mg/dL (8.5-10.1) Magnesium Level 2.1 mg/dL (1.8-2.4) Total Bilirubin 0.8 mg/dL (0.2-1.0) Aspartate Amino Transf (AST/SGOT) 10 U/L (15-37) Alanine Aminotransferase (ALT/SGPT) 17 U/L (16-63) Alkaline Phosphatase 56 U/L (46-116) Troponin I High Sensitivity 31 ng/L (4-75) 32 ng/L (4-75) 28 ng/L (4-75) XZ-Pvc-J-Type Natriuretic Peptide 2868 pg/mL (0-124) Total Protein 7.5 g/dL (6.4-8.2) Albumin 3.5 g/dL (3.4-5.0) Albumin/Globulin Ratio 0.9 (1.0-1.7) Lipase 42 U/L (73-393) Ethyl Alcohol Level < 10 mg/dL (0-10) Urine Collection Type Unknown Urine Color Yellow Urine Clarity Hazy Urine pH 5.5 (<5.0-8.0) Urine Specific [place] >=1.030 (1.000-1.030) Urine Protein 30 mg/dL (NEG-TRACE) Urine Glucose (UA) Negative mg/dL (NEG) Urine Ketones (Stick) Negative mg/dL (NEG) Urine Blood Negative (NEG) Urine Nitrite Negative (NEG) Urine Bilirubin Negative (NEG) Urine Urobilinogen Dipstick 1.0 mg/dL (0.2 mg/dL) Urine Leukocyte Esterase Negative (NEG) Urine RBC 0 /HPF (0-2) Urine WBC 0 /HPF (0-4) Urine Squamous Epithelial Cells Few /LPF Urine Bacteria 0 /HPF (0-FEW) Urine Mucus Mod /LPF Urine Opiates Screen Neg (NEG) Urine Methadone Screen Neg (NEG) Urine Barbiturates Neg (NEG) Urine Phencyclidine Screen Neg (NEG) Urine Amphetamine/Methamphetamine Pos (NEG) Urine Benzodiazepines Screen Pos (NEG) Urine Cocaine Screen Neg (NEG) Urine Cannabinoids Screen Pos (NEG) Urine Ethyl Alcohol Neg (NEG) Procalcitonin < 0.10 ng/mL (0.00-0.10) Test 05/06/21 07:15 Triglycerides Level 42 mg/dL (0-150) Cholesterol Level 123 mg/dL (0-200) LDL Cholesterol, Calculated 66 mg/dL (0-100) VLDL Cholesterol, Calculated 8 mg/dL (0-40) Non-HDL Cholesterol Calculated 74 mg/dL (0-129) HDL Cholesterol 49 mg/dL (40-60) Cholesterol/HDL Ratio 2.5 Assessment and Plan Assessmemt and Plan Problems Medical Problems: (1) Palpitations Status: Acute (2) Pleural effusion Status: Acute (3) Shortness of breath Status: Acute Comment Review of Relevant I have reviewed the following items buster (where applicable) has been applied. Medications: Current Medications Medications (Trade) Dose Ordered Sig/Kala Route PRN Reason Start Time Stop Time Status Last Admin Dose Admin Sodium Chloride 1,000 ml @ 1,000 mls/hr 1X ONCE IV 05/05/21 10:30 05/05/21 11:29 DC 05/05/21 10:34 Iohexol (Omnipaque 350 Mg/ml) 100 ml 1X ONCE IV 05/05/21 11:00 05/05/21 11:01 DC 05/05/21 11:02 Acetaminophen (Tylenol) 650 mg PRN Q6HRS PRN PO MILD PAIN / TEMP > 100.3'F 05/05/21 12:30 05/06/21 05:46 Budesonide (Pulmicort) 0.5 mg RTBID NEB 05/05/21 20:00 05/06/21 07:51 Enoxaparin Sodium (Lovenox 40mg Syringe) 40 mg Q24H SQ 05/05/21 14:00 05/05/21 14:51 Albuterol/ Ipratropium (Duoneb) 3 ml RTQID NEB 05/05/21 16:00 05/06/21 07:51 Finasteride (Proscar) 5 mg DAILY PO 05/05/21 16:30 05/05/21 17:14 Furosemide (Lasix) 40 mg 1X ONCE IVP 05/05/21 16:30 05/05/21 16:31 DC 05/05/21 17:12 Potassium Chloride (Klor-Con) 40 meq 1X ONCE PO 05/05/21 16:30 05/05/21 16:31 DC 05/05/21 17:12 Pantoprazole Sodium (Protonix) 40 mg BID AC PO 05/05/21 17:30 05/06/21 05:46 Sildenafil Citrate (Revatio) 20 mg HS PO 05/05/21 21:00 05/05/21 20:30 Tamsulosin HCl (Flomax) 0.4 mg QHS PO 05/05/21 21:00 05/05/21 20:30 Justifications for Admission Other Justification BALJINDER GREENFIELD MD May 06, 2021 09:05
[2021-05-06 09:32] LABS: CALCIUM 8.7 mg/dL (8.5-10.1); CREATININE 0.8 mg/dL (0.7-1.3); GFR 95.8; POTASSIUM 3.5 mmol/L (3.5-5.1)
[2021-05-06] MEDS: FINASTERIDE 5 MG TABLET. PO SCH (09:33)
--- NOTE | 2021-05-06 09:43 | PDOC ---
MIMI PINEDA PHOTOGRAPHER HELPER 05/06/21 0943: CARDIO Progress Notes Date and Time Date of Service 05/06/2021 Time of Evaluation 0930 Subjective Subjective: No Chest Pain, No shortness of breath, No Palpitations Vitals Vitals Vital Signs Date Time Temp Pulse Resp B/P (MAP) Pulse Ox O2 Delivery O2 Flow Rate FiO2 05/06/21 07:54 94 Room Air 05/06/21 07:00 98.3 84 18 139/100 (113) 98.3 Weight Weight [ ] Input and Output Intake and Output Intake and Output 05/06/21 07:00 Intake Total 1590 ml Output Total 2275 ml Balance -685 ml Intake Oral 590 ml IV Total 1000 ml Output Urine Total 2275 ml # Voids 2 Laboratory Labs Laboratory Tests Test 05/05/21 10:21 05/05/21 10:46 05/05/21 13:28 05/05/21 16:50 White Blood Count 8.2 x10^3/uL (4.0-11.0) Red Blood Count 3.70 x10^6/uL (4.30-5.70) Hemoglobin 11.5 g/dL (13.0-17.5) Hematocrit 36.3 % (39.0-53.0) Mean Corpuscular Volume 98 fL (79-100) Mean Corpuscular Hemoglobin 31 pg (25-35) Mean Corpuscular Hemoglobin Concent 32 g/dL (31-37) Red Cell Distribution Width 16.0 % (11.5-14.5) Platelet Count 153 x10^3/uL (140-400) Neutrophils (%) (Auto) 73 % (31-73) Lymphocytes (%) (Auto) 17 % (24-48) Monocytes (%) (Auto) 8 % (0-9) Eosinophils (%) (Auto) 1 % (0-3) Basophils (%) (Auto) 1 % (0-3) Neutrophils # (Auto) 6.0 x10^3/uL (1.8-7.7) Lymphocytes # (Auto) 1.4 x10^3/uL (1.0-4.8) Monocytes # (Auto) 0.7 x10^3/uL (0.0-1.1) Eosinophils # (Auto) 0.1 x10^3/uL (0.0-0.7) Basophils # (Auto) 0.1 x10^3/uL (0.0-0.2) Prothrombin Time 12.3 SEC (11.7-14.0) Prothromb Time International Ratio 0.9 (0.8-1.1) Sodium Level 146 mmol/L (136-145) Potassium Level 3.6 mmol/L (3.5-5.1) Chloride Level 106 mmol/L (98-107) Carbon Dioxide Level 31 mmol/L (21-32) Anion Gap 9 (6-14) Blood Urea Nitrogen 16 mg/dL (8-26) Creatinine 0.9 mg/dL (0.7-1.3) Estimated GFR (Cockcroft-Gault) 83.7 BUN/Creatinine Ratio 18 (6-20) Glucose Level 109 mg/dL (70-99) Calcium Level 8.3 mg/dL (8.5-10.1) Magnesium Level 2.1 mg/dL (1.8-2.4) Total Bilirubin 0.8 mg/dL (0.2-1.0) Aspartate Amino Transf (AST/SGOT) 10 U/L (15-37) Alanine Aminotransferase (ALT/SGPT) 17 U/L (16-63) Alkaline Phosphatase 56 U/L (46-116) Troponin I High Sensitivity 31 ng/L (4-75) 32 ng/L (4-75) 28 ng/L (4-75) SN-Lyn-S-Type Natriuretic Peptide 2868 pg/mL (0-124) Total Protein 7.5 g/dL (6.4-8.2) Albumin 3.5 g/dL (3.4-5.0) Albumin/Globulin Ratio 0.9 (1.0-1.7) Lipase 42 U/L (73-393) Ethyl Alcohol Level < 10 mg/dL (0-10) Urine Collection Type Unknown Urine Color Yellow Urine Clarity Hazy Urine pH 5.5 (<5.0-8.0) Urine Specific [place] >=1.030 (1.000-1.030) Urine Protein 30 mg/dL (NEG-TRACE) Urine Glucose (UA) Negative mg/dL (NEG) Urine Ketones (Stick) Negative mg/dL (NEG) Urine Blood Negative (NEG) Urine Nitrite Negative (NEG) Urine Bilirubin Negative (NEG) Urine Urobilinogen Dipstick 1.0 mg/dL (0.2 mg/dL) Urine Leukocyte Esterase Negative (NEG) Urine RBC 0 /HPF (0-2) Urine WBC 0 /HPF (0-4) Urine Squamous Epithelial Cells Few /LPF Urine Bacteria 0 /HPF (0-FEW) Urine Mucus Mod /LPF Urine Opiates Screen Neg (NEG) Urine Methadone Screen Neg (NEG) Urine Barbiturates Neg (NEG) Urine Phencyclidine Screen Neg (NEG) Urine Amphetamine/Methamphetamine Pos (NEG) Urine Benzodiazepines Screen Pos (NEG) Urine Cocaine Screen Neg (NEG) Urine Cannabinoids Screen Pos (NEG) Urine Ethyl Alcohol Neg (NEG) Procalcitonin < 0.10 ng/mL (0.00-0.10) Test 05/06/21 07:15 Sodium Level 144 mmol/L (136-145) Potassium Level 3.5 mmol/L (3.5-5.1) Chloride Level 106 mmol/L (98-107) Carbon Dioxide Level 28 mmol/L (21-32) Anion Gap 10 (6-14) Blood Urea Nitrogen 12 mg/dL (8-26) Creatinine 0.8 mg/dL (0.7-1.3) Estimated GFR (Cockcroft-Gault) 95.8 Glucose Level 93 mg/dL (70-99) Calcium Level 8.7 mg/dL (8.5-10.1) Magnesium Level 2.0 mg/dL (1.8-2.4) Triglycerides Level 42 mg/dL (0-150) Cholesterol Level 123 mg/dL (0-200) LDL Cholesterol, Calculated 66 mg/dL (0-100) VLDL Cholesterol, Calculated 8 mg/dL (0-40) Non-HDL Cholesterol Calculated 74 mg/dL (0-129) HDL Cholesterol 49 mg/dL (40-60) Cholesterol/HDL Ratio 2.5 Physical Exam HEENT: Neck Supple W Full Motion Chest: Symmetric LUNGS: Clear to Auscultation Heart: S1S2, RRR (SR) Abdomen: Soft N/T Extremities: No Edema, No Calf Tenderness Neurology: alert, oriented, follow commands Assessment Assessment 1. Mild CHF with possible combined systolic/diastolic dysfunction: compensated 2. Possible COPD with continued vaping 3. LBBB: no prior EKG for comparison. Denies any palpitation for me 4. Adderall use: no clear indiction 5. Marijuana use 6. Anxiety 7. Cardiomyopathy: compensated 8. PSVT Recommendations 1. Will hold off statin, lipids are well controlled. Will arrange for outpt [facility] 2. Lasix PRN 3. Start on toprol and resume home losartan at lower dose. ASA. 4. Would not recommend continuation of adderall Justicifation of Admission Dx: Justifications for Admission: Justification of Admission Dx: Yes DEBORA MINA MD 05/06/21 1335: CARDIO Progress Notes Assessment Assessment Patient seen and examined. Agree with RN HOME CARE's assessment and plan. Acute on chronic systolic heart failure better compensated 2D echo showed severe left ventricle systolic dysfunction Plan cardiac catheterization as an outpatient MIMI PINEDA APRN May 06, 2021 09:43 DEBORA MINA MD May 06, 2021 13:35
[2021-05-06] MEDS ORDERED: LOSA25TA54 PO (10:53)
[2021-05-06] MEDS ORDERED: METO-239 PO (10:53)
[2021-05-06 11:00] VITALS: BP 138/93
[2021-05-06] MEDS ORDERED: METOPROLOL SUCC 24HR ER 25 MG TAB.ER.24H. PO SCH (11:00)
--- NOTE | 2021-05-06 11:04 | NUR ---
SW following. Discussed with RN, pt from home. Discharge order for home with self care. RN advised no SW needs.
[2021-05-06 11:20] VITALS: BP 139/100
[2021-05-06] MEDS ORDERED: POTASSIUM CHLORIDE 20 MEQ TABLET.ER. PO ONE (11:30)
--- NOTE | 2021-05-06 12:18 | NUR ---
Discharge education given and escorted out to ER entrance by this RN. IV and telemonitor discontinued. Belongings given to patient. Educated patient and his girlfriend Mary Ann on discharge instructions.
--- NOTE | 2021-05-06 15:59 | CARD ---
MR#: [id number] Date of Study: 05/06/2021 Ordering Physician: BALJINDER GREENFIELD, Referring Physician: BALJINDER GREENFIELD, Tech: Brenda Tinajero [facility] APPROVED REPORT EXAM: Two-dimensional and M-mode echocardiogram with Doppler and color Doppler. Other Information Quality : AverageLimitedTechnically LimitedExcellentGoodAverageFairHR: 92bpm Rhythm : NSR INDICATION Dyspnea RISK FACTORS Hypertension 2D DIMENSIONS RVDd3.6 (2.9-3.5cm)Left Atrium(2D)4.5 (1.6-4.0cm) IVSd1.0 (0.7-1.1cm)Aortic Root(2D)3.5 (2.0-3.7cm) LVDd5.8 (3.9-5.9cm)LVOT Diameter2.4 (1.8-2.4cm) PWd1.0 (0.7-1.1cm)LVDs4.9 (2.5-4.0cm) FS (%) 15.7 %SV53.9 ml Aortic Valve AoV Peak Victor M.230.9cm/sAoV VTI37.4cm AO Peak GR.21.3mmHgLVOT Peak Victor M.118.8cm/s AO Mean GR.8mmHgAVA (VMAX)2.26cm2 Tricuspid Valve TR P. [id number] Peak Gr.27mmHg LEFT VENTRICLE The Left Ventricle is mildly dilated. There is normal left ventricular wall thickness. The ejection f raction is severely impaired. LV ejection fraction is 15 to 20%. There is severe global hypokinesis of the left ventricle. RIGHT VENTRICLE The right ventricle is normal size. There is normal right ventricular wall thickness. The right ventr icular systolic function is normal. ATRIA The left atrium is moderately dilated. The right atrium is mildly dilated. The interatrial septum is intact with no evidence for an atrial septal defect or patent foramen ovale as noted on 2-D or Dopple r imaging. AORTIC VALVE The aortic valve is normal in structure and function. Doppler and Color Flow revealed trace aortic re gurgitation. There is no significant aortic valvular stenosis. MITRAL VALVE There is no mitral valve stenosis. Doppler and Color-flow revealed mild to moderate mitral regurgitat ion. TRICUSPID VALVE The tricuspid valve is normal in structure and function. Doppler and Color Flow revealed mild tricusp id regurgitation. Estimated PAP 30 mmHg. There is no tricuspid valve stenosis. PULMONIC VALVE The pulmonary valve is normal in structure and function. Doppler and Color Flow revealed no pulmonic valvular regurgitation. GREAT VESSELS The aortic root is normal in size. The ascending aorta is normal in size. The IVC is normal in size a nd collapses >50% with inspiration. PERICARDIAL EFFUSION There is no evidence of significant pericardial effusion. Critical Notification Critical Value: No <Conclusion> The Left Ventricle is mildly dilated. The ejection fraction is severely impaired. LV ejection fraction is 15 to 20%. There is severe global hypokinesis of the left ventricle. Doppler and Color Flow revealed trace aortic regurgitation. There is no significant aortic valvular stenosis. Doppler and Color-flow revealed mild to moderate mitral regurgitation. Doppler and Color Flow revealed mild tricuspid regurgitation. Estimated PAP 30 mmHg. Signed by : Ronald Cantu MD Electronically Approved : 05/06/2021 15:58:43
[2021-05-07] MEDS ORDERED: ASPIRIN ENTERIC COATED 81 MG TABLET.DR. PO SCH (08:00)
[2021-05-07] MEDS ORDERED: LOSARTAN POTASSIUM 25 MG TABLET. PO SCH (09:00)
[2021-05-07] MEDS ORDERED: METOPROLOL SUCC 24HR ER 25 MG TAB.ER.24H. PO SCH (09:00)
== END 2021-05-06 12:30 | disposition home or self-care (01) ==
LOC: ER 10:08 → 2 NORTH 12:06
PROVIDERS: ADMIT Internal Medicine; ATTEND Internal Medicine
DX: J90 Pleural effusion, not elsewhere classified (principal); I11.0 Hypertensive heart disease with heart failure; I50.43 Acute on chronic combined systolic (congestive) and diastolic (congestive) heart failure; R00.2 Palpitations; R06.02 Shortness of breath; F90.9 Attention-deficit hyperactivity disorder, unspecified type; G47.00 Insomnia, unspecified; J98.11 Atelectasis; I42.9 Cardiomyopathy, unspecified; I44.4 Left anterior fascicular block; I47.2 Ventricular tachycardia; I44.7 Left bundle-branch block, unspecified; K21.9 Gastro-esophageal reflux disease without esophagitis; F41.9 Anxiety disorder, unspecified; M19.90 Unspecified osteoarthritis, unspecified site; N40.0 Benign prostatic hyperplasia without lower urinary tract symptoms; F12.90 Cannabis use, unspecified, uncomplicated; R94.31 Abnormal electrocardiogram [ECG] [EKG]; F17.200 Nicotine dependence, unspecified, uncomplicated; Z66 Do not resuscitate; Z79.899 Other long term (current) drug therapy; Z98.890 Other specified postprocedural states
CPT/HCPCS: 36415; 71045; 71275; 80048; 80053; 80061; 80307; 81001; 83690; 83735; 83880; 84145; 84484; 85025; 85610; 93005; 93306; 94640; 94760; 96361; 96372; 96374; 99285; G0378; G0480; J1650; J1940; J7030; J7626; Q9967; G0379; C8929

== ENCOUNTER 2021-05-17 07:00 | Outpatient (CLI) | payer MEDICARE ==
[~2021-05-17] VITALS: Ht 175.3 cm; Wt 90.9 kg
[2021-05-17] VITALS (14 sets, daily range): BP systolic 95–118; BP diastolic 47–88
[~2021-05-17 07:00] MED LIST: ALPR2TAB5 PO; CLON0.2T PO; DEXT30TA2 PO; LOSA25TA54 PO; MELO15TA23 PO; METO-239 PO; PANT40TA77 PO; SILD20TA4 PO; TAMS0.4C97 PO
[2021-05-17] MEDS ORDERED: LIDOCAINE 1% PF 2 ML VIAL. ONE (07:46)
[2021-05-17] MEDS ORDERED: IODIXANOL 320 MG/ML 100 ML VIAL. ONE (07:46)
[2021-05-17] MEDS ORDERED: HEPARIN for IV BOLUS 10,000 UNIT/10 ML VIAL. IART ONE (08:15)
[2021-05-17] MEDS ORDERED: fentaNYL PF VIAL 100 MCG/2 ML VIAL IV ONE (08:15)
[2021-05-17] MEDS ORDERED: MIDAZOLAM HCL/PF 2 MG/2 ML VIAL. IV ONE (08:15)
[2021-05-17] MEDS ORDERED: VERAPAMIL 5 MG/2 ML VIAL. IART ONE (08:15)
[2021-05-17] MEDS ORDERED: IODIXANOL 320 MG/ML 100 ML VIAL. IART ONE (08:15)
[2021-05-17] MEDS ORDERED: CONTRAST GIVEN. MC PRN (08:15)
[2021-05-17] MEDS ORDERED: LIDOCAINE 1% PF 2 ML VIAL. INJ ONE (08:15)
[2021-05-17] MEDS ORDERED: NITROGLYCERIN 200 MCG/2 ML SYRINGE FOR CATH/VASC LAB. IART ONE (08:15)
[2021-05-17] MEDS ORDERED: MIDAZOLAM HCL/PF 2 MG/2 ML VIAL. ONE (08:44)
[2021-05-17] MEDS ORDERED: fentaNYL PF VIAL 100 MCG/2 ML VIAL ONE (08:48)
[2021-05-17] MEDS ORDERED: LACT1CAP6 PO (08:50)
[2021-05-17] MEDS ORDERED: METH500T5 PO (08:50)
[2021-05-17] MEDS ORDERED: DOCU50CA9 PO (08:50)
[2021-05-17] MEDS ORDERED: MULT-658 PO (08:50)
[2021-05-17] MEDS ORDERED: FINA5TAB4 PO (08:50)
--- NOTE | 2021-05-17 09:06 | PDOC ---
MODERATE SEDATION ASSESSMENT RISKS/ALTERNATIVES Risks/Alternatives Risks and alternatives of this type of sedation and procedure discussed with: RISK/ALTERNATIVES: Patient H & P ON CHART H & P H & P on chart and reviewed for co-morbid conditions and appropriate labs. H&P ON CHART: Yes STATUS PREG STATUS ASSESSED: N/A MEDS/ALLERGIES REVIEWED Meds/Allergies Reviewed Medications and Allergies including time and route of recently administered narcotics and sedatives. MEDS/ALLERGIES REVIEWED: Yes ASA RATING ASA RATING: III AIRWAY ASSESSMENT Airway Assessment Airway patency, oral function limitations, presence of caps, crowns, dentures, partials, and ability to extend neck assessed. AIRWAY ASSESSMENT: Yes MALLAMPATI SCORE MALLAMPATI SCORE: II PRE-SEDATION ASSESSMENT PRE-SEDATION ASSESSMENT: Yes DEBORA MINA MD May 17, 2021 09:06
--- NOTE | 2021-05-17 09:17 | CARD ---
MR#: [id number] Date of Study: 05/17/2021 Ordering Physician: DEBORA MCNEILL, Referring Physician: DEBORA MCNEILL, Tech: RT More(R) APPROVED REPORT Technologist: RT More(R) Nurse: Carmencita Price RN Procedure(s) performed: Left heart catheterization, selective coronary angiography via right transrad ial approach fl time: 7.1 min dose: 51 gycm2 contrast: 72 ml moderate sedation: 30 mins INDICATION The indication(s) include : Cardiomyopathy with LVEF 10 to 15%. [facility] Clinical Frailty Scale [facility] Clinical Frailty Scale: Mildly Frail Heart Failure Heart Failure: Yes If Yes, Newly Diagnosed: No If Yes, HF Type: Systolic If Yes, NYHA Class: Class II CASE TECHNIQUE IV conscious sedation was used throughout procedure with appropriate monitoring and was performed in the presence of a registered nurse who was an independent trained observer other than the physician p erforming the procedure. During this case, Fluoroscopy and low osmolar contrast were used for imaging . Specimen(s) Removed: No Estimated Blood loss: 15 cc's. PROCEDURE NARRATIVE After explaining the risks, benefits and alternative options, informed consent was obtained from beth ent. Patient was brought to the cardiac Second Cutter and right wrist was prepped and draped in the usual fashion after confirming a positive modified Juice's test. Arterial access was obtained in the righ t radial artery and a 6 Maltese sheath was inserted. 6 Maltese Junior and 6 Maltese JL 3.5 catheters we re used to perform selective angiography of the right and left coronary arteries. LVEDP and transaor tic gradients were measured. Left ventriculography was not performed since recent 2D echo showed LVE F 10 to 15%. Patient tolerated the procedure well. Hemostasis was achieved using TR band. There we re no immediate complications. The following findings were noted. FINDINGS 1. Hemodynamics: Left ventricular end-diastolic pressure of 23 mmHg. No pullback gradient across th e aortic valve. 2. Coronary angiography: a. The left main coronary artery arose from the left sinus of Valsalva, gave rise to the left anteri or descending and left circumflex arteries and did not show any significant stenosis. b. The left anterior descending artery did not show any significant stenosis. c. The left circumflex artery did not show any significant stenosis. d. The right coronary artery was a large and dominant vessel arising from the right sinus of Valsalv a that did not show any significant stenosis. Conclusion No significant coronary artery disease Recommendations Optimization of medical therapy for severe nonischemic cardiomyopathy and repeat 2D echo in 3 months to evaluate the need for AICD implantation Signed by : Debora Mcneill, Electronically Approved : 05/17/2021 09:16:50
[2021-05-17] MEDS ORDERED: SILD20TA4 PO (09:40)
[2021-05-17] MEDS ORDERED: SPIR25TA5 PO (11:16)
[2021-05-17] MEDS ORDERED: EMPA10TA3 PO (11:16)
--- NOTE | 2021-05-17 12:32 | NUR ---
Discharge Note: DANNIE DOE SUSSY Discharge instructions and discharge home medications reviewed with Patient and a copy given. All questions have been answered and understanding verbalized. The following instructions and handouts were given: radial site care and adult moderate sedation Discontinued lines and drains: Peripheral IV intact. Patient discharged to Home or Self Care withSpousevia Wheelchair
[2021-05-18] MEDS ORDERED: SPIRONOLACTONE 25 MG TABLET PO SCH (09:00)
[2021-05-18] MEDS ORDERED: EMPAGLIFLOZIN 10 MG TABLET. PO SCH (09:00)
== END 2021-05-17 12:34 | disposition home or self-care (01) ==
LOC: CCL 07:00
PROVIDERS: ATTEND Internal Medicine Cardiovascular Disease
DX: I42.8 Other cardiomyopathies (principal); I11.0 Hypertensive heart disease with heart failure; I50.9 Heart failure, unspecified; E78.00 Pure hypercholesterolemia, unspecified; J43.9 Emphysema, unspecified; E66.9 Obesity, unspecified; K21.9 Gastro-esophageal reflux disease without esophagitis; M19.90 Unspecified osteoarthritis, unspecified site; F41.9 Anxiety disorder, unspecified; N40.0 Benign prostatic hyperplasia without lower urinary tract symptoms; F17.210 Nicotine dependence, cigarettes, uncomplicated; Z79.899 Other long term (current) drug therapy; Z98.890 Other specified postprocedural states; Z72.89 Other problems related to lifestyle
CPT/HCPCS: 93458; 99152; 99153; C1769; C1894; J1644; J2250; J3010; J3490; Q9967